=== PATIENT | female | born 1995 | race Caucasian/White ===

== ENCOUNTER 2016-04-02 08:16 | Emergency (ER) | payer OTHER ==
[~2016-04-02] VITALS: Wt 65.0 kg
[2016-04-02 08:53] LABS: URINE BLOOD (Dip) POC 3+ (NEGATIVE)
[2016-04-02] MEDS ORDERED: ORTNOV PO (09:47)
--- NOTE | 2016-04-02 11:20 | ERD ---
ER Documentation Chief Complaint Date/Time DATE: 04/02/16 TIME: 11:19 Chief Complaint lower abd pain intermittent for a few weeks. nausea no vomiting or dysuria HPI Patient is a 21-year-old female with no medical problems who presents with lower abdominal pain. She said the pain started last month. She missed her period in November and then has had irregular periods since then. She denies pain with urination. She has had no treatment as of yet. She does not know the name of her primary doctor. ROS All systems reviewed and are negative except as per history of present illness. Medications Home Meds Active Scripts Norethindrone-Ethinyl Estradiol (Ortho-Novum ()) 0.035-1 Mg Tablet, 1 TAB PO DAILY for 30 Days, TAB Prov:JAC SWEET MD 04/02/16 PMhx/Soc Medical and Surgical Hx: pt denies Medical Hx, pt denies Surgical Hx Hx Alcohol Use: No Hx Substance Use: No Hx Tobacco Use: No FmHx Family History: No diabetes Physical Exam Vitals Vital Signs Date Time Temp Pulse Resp B/P Pulse Ox O2 Delivery O2 Flow Rate FiO2 04/02/16 08:19 98.6 83 20 135/78 99 Physical Exam Const: No acute distress Head: Atraumatic Eyes: Normal Conjunctiva ENT: Normal External Ears, Nose and Mouth. Neck: Full range of motion..~ No meningismus. Resp: Clear to auscultation bilaterally Cardio: Regular rate and rhythm, no murmurs Abd: Soft, non tender, non distended. Normal bowel sounds Skin: No petechiae or rashes Back: No midline or flank tenderness Ext: No cyanosis, or edema Neur: Awake and alert Psych: Normal Mood and Affect Results 24 hrs Laboratory Tests Test 04/02/16 08:55 Bedside Urine Blood 3+ Bedside Urine Glucose (UA) Negative Bedside Urine Ketones (LAB) Negative Bedside Urine Leukocyte Esterase (L Negative Bedside Urine Nitrite (LAB) Negative Bedside Urine Protein (LAB) Negative Bedside Urine pH (LAB) 7.0 Procedures/MDM Urine dip is negative for infection. Urine test is negative. Patient is a 21-year-old female presents with dysfunctional uterine bleeding. I doubt or ectopic . I doubt cystitis. I believe outpatient management is appropriate. She will be given a prescription for Ortho-Novum to stop the bleeding. She can follow-up with her primary doctor within 24-48 hours for reevaluation. She can return sooner for any worsening symptoms. She is otherwise well-appearing upon discharge. Departure Diagnosis: Primary Impression: Dysfunctional uterine bleeding Additional Impression: Abdominal pain Abdominal location: unspecified location Qualified Code: R10.9 - Abdominal pain, unspecified location Condition: Fair Patient Instructions: Abdominal Pain, Dysfunctional Uterine Bleeding Referrals: Your doctor Additional Instructions: Call your primary care doctor TOMORROW for an appointment during the next 1-2 days.See the doctor sooner or return here if your condition worsens before your appointment time. JAC SWEET MD Apr 02, 2016 11:20
== END 2016-04-02 10:02 | disposition home or self-care (01) ==
LOC: FTE 08:16
DX: N93.8 Other specified abnormal uterine and vaginal bleeding (principal)
CPT/HCPCS: 81003; Z7502; 99283